=== PATIENT | female | born 1990 | race Caucasian/White ===

== ENCOUNTER 2018-04-05 19:35 | Emergency (ER) | payer OTHER ==
[~2018-04-05] VITALS: Ht 160 cm; Wt 59.1 kg
[2018-04-05 19:37] VITALS: BP 132/98; TEMP 98.8
[2018-04-05] MEDS ORDERED: VIIBRYD40 MG PO (20:14)
[2018-04-05] MEDS ORDERED: OMEGA-3 1000 MG1 CAP PO (20:15)
[2018-04-05] MEDS ORDERED: XANAX 0.5MG0.5 MG PO (20:15)
[2018-04-05] MEDS ORDERED: VIIBRYD20 MG PO (20:25)
[2018-04-05 22:21] VITALS: PULSE 85
== END 2018-04-05 22:21 | disposition home or self-care (01) ==
LOC: COL.ER 19:35
DX: S61.412A Laceration without foreign body of left hand, initial encounter (principal); F41.9 Anxiety disorder, unspecified; Z87.891 Personal history of nicotine dependence; W26.0XXA Contact with knife, initial encounter

== ENCOUNTER 2018-04-12 17:25 | Emergency (ER) | payer OTHER ==
[~2018-04-12 17:25] MED LIST: OMEGA-3 1000 MG1 CAP PO; VIIBRYD20 MG PO; VIIBRYD40 MG PO; XANAX 0.5MG0.5 MG PO
[2018-04-12 17:35] VITALS: BP 119/67; PULSE 90; TEMP 98.6
== END 2018-04-12 17:38 | disposition home or self-care (01) ==
LOC: COL.ER 17:25
DX: S61.412D Laceration without foreign body of left hand, subsequent encounter (principal); X58.XXXD Exposure to other specified factors, subsequent encounter

== ENCOUNTER 2018-11-05 10:53 | Emergency (ER) | payer OTHER ==
[~2018-11-05] VITALS: Ht 160 cm; Wt 56.8 kg
[2018-11-05 10:59] VITALS: BP 138/78; TEMP 97.3
[2018-11-05] MEDS ORDERED: CEPHALEXIN500 M1 PO (11:37)
[2018-11-05 12:01] VITALS: PULSE 63
== END 2018-11-05 12:02 | disposition home or self-care (01) ==
LOC: COL.ER 10:53
DX: L02.11 Cutaneous abscess of neck (principal); F32.9 Major depressive disorder, single episode, unspecified; F41.9 Anxiety disorder, unspecified

== ENCOUNTER 2019-06-16 10:57 | Emergency (ER) | payer OTHER ==
[~2019-06-16] VITALS: Ht 160 cm; Wt 56.8 kg
[~2019-06-16 10:57] MED LIST changes: +CEPHALEXIN500 M1 PO
[2019-06-16 11:12] VITALS: BP 107/71; TEMP 97.7
[2019-06-16 12:32] LABS: STREP SCREEN NEGATIVE
[2019-06-16] MEDS ORDERED: ZITHROMAX Z PA250 MG PO (13:20)
[2019-06-16 13:30] VITALS: PULSE 83
== END 2019-06-16 13:36 | disposition home or self-care (01) ==
LOC: COL.ER 10:57
PROVIDERS: Nurse Practitioner
DX: J40 Bronchitis, not specified as acute or chronic (principal)